=== PATIENT | female | born 1945 | race Caucasian/White ===

== ENCOUNTER 2017-08-23 14:30 | Emergency (ER) | payer MEDICARE ==
[2014-04-25 07:33] VITALS: BMI 34.8
[~2017-08-23 14:30] MED LIST: BABY ASPIRIN81 MG PO; CARDURA1 MG PO; CATAPRES0.1 MG PO; COZAAR50 MG PO; HYDROCODON-ACE1 EAC7 PO; LASIX20 MG PO; NEURONTIN 100100 MG PO; PHENERGAN12.5 MG PO; SINGULAIR10 MG PO; SODIUM BICARBO650 MG NG; TOPROL XL100 MG PO; TRIGLIDE160 MG PO; VALIUM5 MG; VALIUM5 MG PO; VITAMIN D2000 UNIT PO; ZEMPLAR2 MCG PO; ZOCOR40 MG PO
== END 2017-08-23 22:32 | disposition home or self-care (01) ==
LOC: D.ER 14:30
DX: N18.6 End stage renal disease (principal); Z86.79 Personal history of other diseases of the circulatory system; I69.359 Hemiplegia and hemiparesis following cerebral infarction affecting unspecified side